=== PATIENT | male | born 1970 | race Caucasian/White ===

== ENCOUNTER 2021-09-13 15:20 | Emergency (ER) | payer OTHER, SELFPAY ==
[2021-09-13] VITALS (14 sets, daily range): BP systolic 172–203; BP diastolic 84–112; PULSE 76–94; RESP 18; TEMP 36.8; O2SAT 96–99; BMI 29.8
--- NOTE | 2021-09-13 15:30 | DI.CT.S_ITS ---
PROCEDURE: CT ABDOMEN PELVIS W CON INDICATIONS: 51-year-old male with right lower quadrant pain TECHNIQUE: After the administration of intravenous contrast, axial sections acquired from the lung bases to the pubic symphysis. Coronal and sagittal reformats were performed. For radiation dose reduction, the following was used: automated exposure control, adjustment of mA and/or kV according to patient size. COMPARISON: [facility], CT, ABDOMEN/PELVIS WITH CONTRAST, 10/29/2007, 10:57. FINDINGS: Lower thorax: The lung bases are clear. Heart size normal. No hiatal hernia. Liver: The liver is diffusely decreased in attenuation without focal mass lesion. Biliary system: No calcified cholelithiasis or pericholecystic inflammation. No intra or extrahepatic bile duct dilatation. Pancreas: Unremarkable without mass or inflammation evident. Spleen: Normal in size and density. Adrenals: Normal morphology and density. Reproductive system: Unremarkable as visualized. Urinary system: Normal renal size and attenuation. 3 mm nonobstructive left renal calculus noted. Additional 4 mm right renal calculus is also nonobstructive. No hydronephrosis present bilaterally. Gastrointestinal system: The bowel is unremarkable without evidence of bowel obstruction or inflammation. The stomach appears unremarkable. Appendix: Normal appendix identified. No evidence of appendicitis. Peritoneal spaces: No mesenteric or retroperitoneal adenopathy. No free air. No free fluid. Vasculature: The IVC, aorta and iliac vasculature are unremarkable. Abdominal wall: Abdominal wall intact without evidence of ventral or inguinal hernias. Musculoskeletal: Normal bone mineralization. No acute fractures. IMPRESSION: 1. No acute CT findings in the abdomen or pelvis 2. Normal appearing appendix. No appendicitis. 3. Nonobstructive bilateral renal calculi. No hydronephrosis bilaterally. Approved by: Virgil Rob M.D. on 09/13/2021 at 16:31
[2021-09-13] MEDS: SODIUM CHLORIDE 0.9% 1,000 ML 125 ML IV (15:52)
[2021-09-13 15:58] LABS: Hematocrit 48.2 % (41-53); Hemoglobin 16.6 g/dL (13.5-17.5); Mean Corpuscular HGB Conc 34.5 % (30-36); Mean Corpuscular Hemoglobin 33.5 PG (26-34); Mean Corpuscular Volume 97.2 fL (80-100); Platelet Count 218 X10^3/uL (150-400); Red Blood Cell Count 4.96 X10^6/uL (4.5-5.9); Red Cell Distribution Width 13.8 % (11.6-14.8); White Blood Cell Count 10.3 X10^3/uL (4.5-11.0)
[2021-09-13 16:19] LABS: Add Manual Diff / Slide Review YES
[2021-09-13 16:24] LABS: Neutrophils Absolute Manual 7210 /uL (3000-5900); RBC Morphology Normal Morphology; Total Cells Counted 100
[2021-09-13 16:42] LABS: Alanine Aminotransferase 86 IU/L (<50); Albumin 4.7 g/dL (3.5-5.0); Albumin Globulin Ratio 1.3 (1.0-2.8); Alkaline Phosphatase 106 U/L (38-126); Aspartate Aminotransferase 59 IU/L (17-59); Bilirubin Total 0.8 mg/dL (0.2-1.3); Blood Urea Nitrogen 9 mg/dL (9-20); Calcium 9.6 mg/dL (8.4-10.2); Carbon Dioxide 28 mmol/L (22-32); Chloride 103 mmol/L (98-107); Estimated Glomerular Filt Rate > 60.0 mL/min (>60); Globulin 3.6 g/dL (1.7-4.1); Glucose 104 mg/dL (70-100); HEMOLYSIS < 15 (0-50); Lipase 54 U/L (23-300); Potassium 4.4 mmol/L (3.4-5.1); Sodium 137 mmol/L (137-145); Total Protein 8.3 g/dL (6.3-8.2)
[2021-09-13 17:44] LABS: COVID19 - ADMIT (NP swab/PCR) Negative (Negative)
--- NOTE | 2021-09-13 18:40 | ED_ITS ---
HPI - Abdominal Pain <Ash Veloz PA-C - Last Filed: 09/13/21 20:25> General Chief Complaint: Abdominal Pain Stated Complaint: Right lower quad pain today Time Seen by Provider: 09/13/21 15:29 Source: patient Mode of arrival: Ambulatory Limitations: no limitations History of Present Illness HPI narrative: Patient is a 51-year-old male presenting to the emergency department today for e valuation of right lower quadrant abdominal pain that began at 8:00 a.m. this morning. Patient states that he experienced pain specifically in his right lower quadrant with associated nausea this morning. Patient notes that he has not experienced subsequent episodes of nausea since this morning. He describes the pain in his abdomen as ?cramping?. Patient denies fever, chills, chest pain, shortness of breath, cough, vomiting, diarrhea, constipation, dysuria, hematuria, testicular pain. No other concerns voiced at this time. Related Data Allergies Allergy/AdvReac Type Severity Reaction Status Date / Time No Known Drug Allergies Allergy Verified 09/13/21 15:46 Review of Systems <Ash Veloz PA-C - Last Filed: 09/13/21 20:25> Constitutional Constitutional: Denies chills, Denies fatigue, Denies fever(s), Denies frequent falls, Denies lethargy and Denies weakness Eyes Eyes: Denies change in vision, Denies eye discharge, Denies irritation and Denies loss of vision ENT Ears, Nose, Mouth, and Throat: Denies dizziness and Denies neck pain Cardiovascular Cardiovascular: Denies chest pain, Denies irregular heart rhythm, Denies lightheadedness, Denies palpitations, Denies dyspnea, Denies dyspnea on exertion and Denies orthopnea Respiratory Respiratory: Denies cough, Denies dyspnea, Denies dyspnea on exertion and Denies wheezing Gastrointestinal Gastrointestinal: Reports abdominal pain (Right lower quadrant), Denies melena, Denies hematochezia, Denies change in bowel habits, Denies constipation, Denies diarrhea, Reports nausea and Denies vomiting Genitourinary Genitourinary: Denies hematuria, Denies flank pain, Denies urinary incontinence and Denies urinary urgency Musculoskeletal Musculoskeletal: Denies back pain, Denies muscle weakness, Denies neck pain, De nies numbness and Denies tingling Neurologic Neurologic: Denies behavioral changes, Denies confusion, Denies dizziness, Denies frequent falls, Denies loss of vision, Denies numbness, Denies tingling and Denies weakness Psychiatric Psychiatric: Denies behavioral changes and Denies confusion Endocrine Endocrine: Denies fatigue and Denies palpitations Allergic/Immunologic Allergic/Immunologic: Denies wheezing Patient History <Ash Veloz PA-C - Last Filed: 09/13/21 20:25> Social History Smoking Status: Current some day smoker Smoking Status: Current some day smoker tobacco type: cigarettes alcohol intake frequency: a few times a week Alcohol type: beer Substance Use Type: does not use Exam <Ash Veloz PA-C - Last Filed: 09/13/21 20:25> Narrative Exam Narrative: GENERAL: 51 year old patient appears stated age. Well-developed patient, in no acute distress. HEAD: Atraumatic. Normocephalic. EYES: Pupils equal round and reactive. Extraocular motions intact. No scleral icterus. No injection or drainage. ENT: Nose without bleeding, purulent drainage. Throat without erythema, tonsillar hypertrophy or exudate. Airway patent. NECK: Trachea midline. Non tender CARDIOVASCULAR: Regular rate and rhythm without murmurs, gallops, or rubs. RESPIRATORY: Clear to auscultation. Breath sounds equal bilaterally. No wheezes, rales, or rhonchi. GASTROINTESTINAL: Abdomen soft, nondistended. Tenderness to palpation in the right lower quadrant over McBurney's point with involuntary guarding. No masses appreciated. Negative obturator sign. Negative psoas sign. EXTREMITIES: No edema or joint tenderness. BACK: Nontender without deformity or crepitance. No flank tenderness. NEURO: AOx3. SKIN: No rash or erythema of visible areas Initial Vital Signs Initial Vital Signs: Vital Signs Temperature 98.2 F 09/13/21 15:42 Pulse Rate 94 H 09/13/21 15:42 Respiratory Rate 18 09/13/21 15:42 Blood Pressure 181/112 H 09/13/21 15:42 Pulse Oximetry 97 09/13/21 15:42 <Fred Meredith DO - Last Filed: 09/17/21 07:09> Initial Vital Signs Initial Vital Signs: Vital Signs Temperature 98.2 F 09/13/21 15:42 Pulse Rate 94 H 11/17/21 15:42 Respiratory Rate 18 09/13/21 15:42 Blood Pressure 181/112 H 09/13/21 15:42 Pulse Oximetry 97 09/13/21 15:42 Course <Ahs Veloz PA-C - Last Filed: 09/13/21 20:25> Course Course Narrative: CT of the abdomen and pelvis with IV contrast ordered. COVID test, CBC, CMP ordered. Orders Ordered: Discontinued Medications Sodium Chloride (Normal Saline 0.9%) 1,000 mls @ 125 mls/hr IV CONT TYSON Last Infusion: 09/13/21 17:42 Dose: 0 mls/hr Documented by: Admin: 09/13/21 15:52 Dose: 125 mls/hr Documented by: MILTON Labetalol HCl (Labetalol 20 Mg/4 Ml Syringe) 5 mg IV NOW ONE Stop: 09/13/21 18:36 Last Admin: 09/13/21 19:20 Dose: 5 mg Documented by: HIMANSHU Vital Signs Vital signs: Vital Signs - 8 hr 09/13/21 15:42 09/13/21 17:40 09/13/21 17:41 Temperature 98.2 F Pulse Rate 94 H 90 Respiratory Rate 18 Blood Pressure 181/112 H 203/100 H Pulse Oximetry 97 98 99 09/13/21 18:00 09/13/21 18:01 09/13/21 18:30 Temperature Pulse Rate 76 77 81 Respiratory Rate Blood Pressure 191/86 H Pulse Oximetry 97 99 98 09/13/21 18:31 09/13/21 19:00 09/13/21 19:01 Temperature Pulse Rate 81 79 79 Respiratory Rate Blood Pressure 177/88 H 176/84 H Pulse Oximetry 99 97 98 09/13/21 19:20 09/13/21 19:25 09/13/21 19:30 Temperature Pulse Rate 83 88 81 Respiratory Rate Blood Pressure 184/97 H 183/94 H 179/89 H Pulse Oximetry 98 97 97 09/13/21 19:40 09/13/21 19:50 Temperature Pulse Rate 81 78 Respiratory Rate Blood Pressure 181/88 H 172/84 H Pulse Oximetry 97 96 <Fred Meredith DO - Last Filed: 09/17/21 07:09> Orders Ordered: Discontinued Medications Sodium Chloride (Normal Saline 0.9%) 1,000 mls @ 125 mls/hr IV CONT TYSON Last Infusion: 09/13/21 17:42 Dose: 0 mls/hr Documented by: Admin: 09/13/21 15:52 Dose: 125 mls/hr Documented by: MILTON Labetalol HCl (Labetalol 20 Mg/4 Ml Syringe) 5 mg IV NOW ONE Stop: 09/13/21 18:36 Last Admin: 09/13/21 19:20 Dose: 5 mg Documented by: HIMANSHU Vital Signs Vital signs: Vital Signs - 8 hr 09/13/21 15:42 09/13/21 17:40 09/13/21 17:41 Temperature 98.2 F Pulse Rate 94 H 90 Respiratory Rate 18 Blood Pressure 181/112 H 203/100 H Pulse Oximetry 97 98 99 09/13/21 18:00 09/13/21 18:01 09/13/21 18:30 Temperature Pulse Rate 76 77 81 Respiratory Rate Blood Pressure 191/86 H Pulse Oximetry 97 99 98 09/13/21 18:31 09/13/21 19:00 09/13/21 19:01 Temperature Pulse Rate 81 79 79 Respiratory Rate Blood Pressure 177/88 H 176/84 H Pulse Oximetry 99 97 98 09/13/21 19:20 09/13/21 19:25 09/13/21 19:30 Temperature Pulse Rate 83 88 81 Respiratory Rate Blood Pressure 184/97 H 183/94 H 179/89 H Pulse Oximetry 98 97 97 09/13/21 19:40 09/13/21 19:50 Temperature Pulse Rate 81 78 Respiratory Rate Blood Pressure 181/88 H 172/84 H Pulse Oximetry 97 96 MDM - Abdominal Pain <Ash Veloz PA-C - Last Filed: 09/13/21 20:25> Lab Data Result diagrams: 09/13/21 15:48 09/13/21 15:48 Labs: Lab Results 09/13/21 09/13/21 09/13/21 Range/Units 15:48 15:48 15:58 WBC 10.3 (4.5-11.0) X10^3/uL RBC 4.96 (4.5-5.9) X10^6/uL Hgb 16.6 (13.5-17.5) g/dL Hct 48.2 (41-53) % MCV 97.2 (80-100) fL MCH 33.5 (26-34) PG MCHC 34.5 (30-36) % RDW 13.8 (11.6-14.8) % Plt Count 218 (150-400) X10^3/uL Neut % (Auto) Not Reportable Lymph % (Auto) Not Reportable [place] % (Auto) Not Reportable Eos % (Auto) Not Reportable Baso % (Auto) Not Reportable Lymph # (Auto) Not Reportable [place] # (Auto) Not Reportable Baso # (Auto) Not Reportable Total Counted 100 Seg Neutrophils % 70.0 (38-70) % Lymphocytes % (Manual) 21.0 L (25-45) % Monocytes % (Manual) 8.0 (2-11) % Eosinophils % (Manual) 1.0 L (2-4) % Neutrophils # (Manual) 7210 H (8809-3653) /uL RBC Morphology Normal morphology Sodium 137 (137-145) mmol/L Potassium 4.4 (3.4-5.1) mmol/L Chloride 103 (98-107) mmol/L Carbon Dioxide 28 (22-32) mmol/L BUN 9 (9-20) mg/dL Creatinine 0.82 (0.66-1.25) mg/dL Estimated GFR > 60.0 (>60) mL/min BUN/Creatinine Ratio 11.0 (6-22) Glucose 104 H (70-100) mg/dL Calcium 9.6 (8.4-10.2) mg/dL Total Bilirubin 0.8 (0.2-1.3) mg/dL AST 59 (17-59) IU/L ALT 86 H (<50) IU/L Alkaline Phosphatase 106 (38-126) U/L Total Protein 8.3 H (6.3-8.2) g/dL Albumin 4.7 (3.5-5.0) g/dL Globulin 3.6 (1.7-4.1) g/dL Albumin/Globulin Ratio 1.3 (1.0-2.8) Lipase 54 (23-300) U/L SARS-CoV-2 (PCR) Negative (Negative) Imaging Data CT scan - abdomen/pelvis: Radiologist's Impression: PROCEDURE:? CT ABDOMEN PELVIS W CON ? INDICATIONS:? 51-year-old male with right lower quadrant pain ? TECHNIQUE:? After the administration of intravenous contrast, axial sections acquired from the lung bases to the pubic symphysis.? Coronal and sagittal reformats were performed.? For radiation dose reduction, the following was used:? automated exposure control, adjustment of mA and/or kV according to patient size.? ? COMPARISON:? [facility], CT, ABDOMEN/PELVIS WITH CONTRAST, 10/29/2007, 10:57. ? FINDINGS: ? Lower thorax: The lung bases are clear.? Heart size normal.? No hiatal hernia. ? Liver: The liver is diffusely decreased in attenuation without focal mass lesion. ? Biliary system:? No calcified cholelithiasis or pericholecystic inflammation. No intra or extrahepatic bile duct dilatation. ? Pancreas:? Unremarkable without mass or inflammation evident. ? Spleen:? Normal in size and density. ? Adrenals:? Normal morphology and density. ? Reproductive system:? Unremarkable as visualized. ? Urinary system:? Normal renal size and attenuation.? 3 mm nonobstructive left renal calculus noted.? Additional 4 mm right renal calculus is also nonobstructive.? No hydronephrosis present bilaterally. ? Gastrointestinal system:? The bowel is unremarkable without evidence of bowel obstruction or inflammation. The stomach appears unremarkable. ? Appendix:? Normal appendix identified.? No evidence of appendicitis. ? Peritoneal spaces:? No mesenteric or retroperitoneal adenopathy.? No free air.? No free fluid.? ? Vasculature:? The IVC, aorta and iliac vasculature are unremarkable. ? Abdominal wall:? Abdominal wall intact without evidence of ventral or inguinal hernias. ? Musculoskeletal:? Normal bone mineralization.? No acute fractures.? ? IMPRESSION: ? 1. No acute CT findings in the abdomen or pelvis ? 2. Normal appearing appendix.? No appendicitis.? ? 3. Nonobstructive bilateral renal calculi.? No hydronephrosis bilaterally. ? ? Approved by: Virgil Rob M.D. on 09/13/2021 at 16:31? [facility] Narrative Medical decision making narrative: Patient is a 51-year-old male presenting to the emergency department today for evaluation of right lower quadrant abdominal pain that began at 8:00 a.m. this morning. To consider appendicitis. Discussed results of CT scan and lab results with patient. Also discussed with patient need to have stricter control over blood pressure management. At this time patient feels comfortable being discharged home. Strict return precautions discussed with the patient prior to discharge. <Fred Meredith, DO - Last Filed: 09/17/21 07:09> Lab Data Labs: Lab Results 09/13/21 09/13/21 09/13/21 Range/Units 15:48 15:48 15:58 WBC 10.3 (4.5-11.0) X10^3/uL RBC 4.96 (4.5-5.9) X10^6/uL Hgb 16.6 (13.5-17.5) g/dL Hct 48.2 (41-53) % MCV 97.2 (80-100) fL MCH 33.5 (26-34) PG MCHC 34.5 (30-36) % RDW 13.8 (11.6-14.8) % Plt Count 218 (150-400) X10^3/uL Neut % (Auto) Not Reportable Lymph % (Auto) Not Reportable [place] % (Auto) Not Reportable Eos % (Auto) Not Reportable Baso % (Auto) Not Reportable Lymph # (Auto) Not Reportable [place] # (Auto) Not Reportable Baso # (Auto) Not Reportable Total Counted 100 Seg Neutrophils % 70.0 (38-70) % Lymphocytes % (Manual) 21.0 L (25-45) % Monocytes % (Manual) 8.0 (2-11) % Eosinophils % (Manual) 1.0 L (2-4) % Neutrophils # (Manual) 7210 H (9294-6915) /uL RBC Morphology Normal morphology Sodium 137 (137-145) mmol/L Potassium 4.4 (3.4-5.1) mmol/L Chloride 103 (98-107) mmol/L Carbon Dioxide 28 (22-32) mmol/L BUN 9 (9-20) mg/dL Creatinine 0.82 (0.66-1.25) mg/dL Estimated GFR > 60.0 (>60) mL/min BUN/Creatinine Ratio 11.0 (6-22) Glucose 104 H (70-100) mg/dL Calcium 9.6 (8.4-10.2) mg/dL Total Bilirubin 0.8 (0.2-1.3) mg/dL AST 59 (17-59) IU/L ALT 86 H (<50) IU/L Alkaline Phosphatase 106 (38-126) U/L Total Protein 8.3 H (6.3-8.2) g/dL Albumin 4.7 (3.5-5.0) g/dL Globulin 3.6 (1.7-4.1) g/dL Albumin/Globulin Ratio 1.3 (1.0-2.8) Lipase 54 (23-300) U/L SARS-CoV-2 (PCR) Negative (Negative) Discharge Plan Departure Patient Disposition: Home Clinical Impression: Abdominal pain, Hypertension Instructions: DI for Abdominal Pain-Adult Activity Restrictions/Additional Instructions: *You have been diagnosed with abdominal pain, hypertension *What to do: *Please continue to take your regular medications as directed. [ ] New medication prescriptions sent to your pharmacy: [ ] [ ] New medication written as a paper prescription [X] No new medications given *Please follow up with your primary care provider in the next 24-48 hours, call for an appointment. Let them know you were seen in the Emergency Department and that we ask that you be seen in follow up. We will electronically transmit a record of today's note if your PCP is in our system *If you do not have a primary care provider please contact the [facility] Resource line at [phone]. They will ask some questions about your medical history and help get you set up with a doctor in the community. *Return to Emergency Department if you should have any new, worsening or concerning symptoms, such as fever greater than 101 F, shaking chills, worsening abdominal pain, persistent vomiting or other bothersome symptoms. Referrals: Alexa Luz DO [Primary Care Provider] - <Fred Meredith DO - Last Filed: 09/17/21 07:09> Cosign ED Attending Cosmanpreetature Attestation: Dr Meredith Co-Sign Statement: I was available for consultation during this patient's emergency department visit. This chart is signed by myself for administrative purposes only. I did not have direct contact with this patient during this visit. They were seen independently by the APC.
[2021-09-13] MEDS: LABETALOL 20 MG/4 ML SYRINGE 5 MG IV (19:20)
== END 2021-09-13 19:56 | disposition home or self-care (01) ==
PROVIDERS: Emergency Medicine; Emergency Provider Physician Assistant; PCP Family Medicine
DX: R10.31 Right lower quadrant pain (principal); Z20.822 Contact with and (suspected) exposure to COVID-19
CPT/HCPCS: 36415; 74177; 80053; 83690; 85007; 85025; 87635; 96361; 96374; 99284; C9803